=== PATIENT | female | born 1990 | race Two or more races ===

== ENCOUNTER 2016-05-28 11:58 | Emergency (ER) | payer SELFPAY ==
[2016-05-28 12:40] LABS: PH,URINE 6.5 (5.0-8.0); URINE BILIRUBIN NEGATIVE (NEGATIVE); URINE BLOOD NEGATIVE (NEGATIVE); URINE GLUCOSE (UA) NEGATIVE (NEGATIVE); URINE LEUKOCYTE ESTERASE NEGATIVE (NEGATIVE); URINE NITRITE NEGATIVE (NEGATIVE); URINE PROTEIN TRACE (NEGATIVE); URINE UROBILINOGEN NORMAL (0-1 mg/dl)
[2016-05-28 12:41] LABS: URINE APPEARANCE CLEAR; URINE COLOR YELLOW
[2016-05-28 13:29] LABS: ABSOLUTE NEUTROPHIL COUNT 6.9 K/mm3 (1.8-7.7); BASO % 0.3 % (0.2-1.0); EOS # 0.2 (0.0-0.5); EOS % 2.2 % (0.9-2.9); HEMATOCRIT 35.9 % (37.0-47.0); HEMOGLOBIN 12.1 gm/l (12.0-16.0); IMM NEUT # 0.1 K/mm3 (0-0.2); IMM NEUT% 0.5 % (0-1); LYMPH # 1.9 (1.0-4.8); LYMPH % 20.4 % (15-45); MEAN CELL VOLUME 89.8 fl (81.0-99.0); MEAN CORPUSCULAR HEMOGLOBIN 30.3 pg (27.0-31.0); MEAN CORPUSCULAR HGB CONC 33.7 g/dl (33.0-37.0); MEAN PLATELET VOLUME 10.1 fl (7.4-10.4); MONO # 0.4 (0.0-0.8); MONO % 4.4 % (4-12); NEUT % 72.2 % (43-75); PLATELET COUNT 215 K/mm3 (130-400); RED CELL DISTRIBUTION WIDTH 12.7 % (11.5-14.5)
[2016-05-28 13:43] LABS: ALB/GLOB RATIO 1.1 (>1.0); ALBUMIN 3.7 gm/dL (3.5-5.7); CALCIUM 8.9 mg/dL (8.6-10.3)
--- NOTE | 2016-05-28 14:25 | US ---
Exam: Complete obstetric ultrasound less than 14 weeks COMPARISON: None INDICATION: Left lower quadrant abdominal pain, . Findings: Transabdominal and transvaginal obstetric ultrasound less than 14 weeks was obtained. Real-time sonographic imaging demonstrated a single live intrauterine with a heart rate of 153 bpm. [place]-rump length of 7.2 cm correlates with a gestational age of 13 weeks 1 day and a sonographic TABITHA is 12/02/2016. Yolk sac is identified. Amniotic fluid volume appears subjectively normal. The placenta appears to be developing posteriorly. The cervix is closed and measures 3.4 cm transvaginally. The right ovary measures 3.3 x 1.7 x 2.5 cm and the left ovary measures 2.5 x 2.3 x 1.8 cm. There is no cystic or solid ovarian mass. Blood flow is present within both ovaries. There is no significant free fluid in the cul-de-sac. IMPRESSION: 1. No findings identified to explain left lower quadrant pain. Left ovary is normal. 2. Single live intrauterine of approximately 13 weeks 1 day gestation with a heart rate of 153 bpm. Sonographic TABITHA is 12/02/2016. Report was uploaded to the EMR at 1421 hours 05/28/2016.
[2016-05-29 15:11] LABS: CHLAMYDIA BD Negative (Negative); N.GONORRHOEAE BD Negative (Negative); SOURCE Urine (())
== END 2016-05-28 15:04 | disposition home or self-care (01) ==
LOC: ED 11:58
DX: O26.891 Other specified pregnancy related conditions, first trimester (principal); R10.9 Unspecified abdominal pain; Z3A.13 13 weeks gestation of pregnancy